=== PATIENT | female | born 1975 ===

== ENCOUNTER 2024-01-06 09:19 | Outpatient (CLI) | payer OTHER | END 2024-01-06 09:35 | disposition home or self-care (01) | LOC: SONOGRAMA 09:19 | PROVIDERS: ATTEND Obstetrics & Gynecology Gynecology | DX: N92.0 Excessive and frequent menstruation with regular cycle (principal); N84.0 Polyp of corpus uteri ==

== ENCOUNTER 2024-04-01 05:30 | Day surgery (SDC) | payer OTHER ==
[2024-03-25 11:26] VITALS: BP 114/75
[2024-03-25 12:20] LABS: RH POSITIVE
[~2024-04-01] VITALS: Ht 160 cm; Wt 55.3 kg
[~2024-04-01 05:30] MED LIST: WELLBUTRIN SR150 MG PO
[2024-04-01] MEDS ORDERED: POVIDONE-IODINE 118 ML BOTT TOP ONE (07:45)
[2024-04-01] MEDS ORDERED: GABAPENTIN 100 MG CAPSULE PO STA (09:15)
[2024-04-01] MEDS ORDERED: CELECOXIB 200 MG CAPSULE PO STA (09:15)
[2024-04-01] MEDS ORDERED: ACETAMINOPHEN 650 MG SUPP.RECT RECTAL STA (09:15)
[2024-04-01 10:13] LABS: HEMATOCRIT 34.1 % (36.0-45.00); HEMOGLOBIN 11.7 g/dL (12.0-15.00); MEAN CELL VOLUME 84.5 fL (80.00-100.00); MEAN CORPUSCULAR HGB CONC 34.4 g/dl (32.0-36.0); PLATELET COUNT 273 K/uL (150-450); RED BLOOD COUNT 4.03 M/uL (4.00-6.00); RED CELL DISTRIBUTION WIDTH 14.1 % (11.5-14.5)
[2024-04-01] MEDS ORDERED: ACETAMINOPHEN 325 MG TABLET PO ONE (10:30)
[2024-04-01 11:02] LABS: ALBUMIN 3.6 gm/dL (3.4-5.0); BILIRUBIN TOTAL 0.88 mg/dL (0.3-1.2); CALCIUM 8.9 mg/dL (8.5-10.1); CREATININE SERUM 0.54 mg/dL (0.55-1.02); GFR 119.99; GLOBULINA 2.6 G/DL (2.4-3.5); POTASSIUM 3.93 mEq/L (3.5-5.1); TOTAL PROTEIN 6.2 gm/dL (6.4-8.2)
== END 2024-04-01 13:40 | disposition home or self-care (01) ==
LOC: CIR.AMB 05:30
PROVIDERS: ATTEND Obstetrics & Gynecology Gynecology
DX: N84.0 Polyp of corpus uteri (principal); Z91.013 Allergy to seafood; Z88.2 Allergy status to sulfonamides; Z91.041 Radiographic dye allergy status